=== PATIENT | female | born 1975 | race American Indian/Alaskan Native ===

== ENCOUNTER 2018-04-10 09:57 | Outpatient (CLI) | payer BC ==
--- NOTE | 2018-04-10 14:45 | Mammography Report ---
BILATERAL DIGITAL SCREENING MAMMOGRAM with CAD : 04/10/18 09:57:00 CLINICAL: Routine screening. COMPARISON:12/21/15 FINDINGS: The breasts are heterogeneously dense, which may obscure small masses.A stable right low density circumscribed mass at 5 o'clock correlates with a previously described solid mass by ultrasound. No new mass, architectural distortion or suspicious calcifications. IMPRESSION: No mammographic evidence of malignancy. BI-RADS CATEGORY: 2 -- Benign RECOMMENDATION: Routine mammographic screening in one year. COMMENT: Patient follow-up letters are generated by our [employer] application.
== END 2018-04-10 09:58 | disposition home or self-care (01) ==
LOC: SPVWC 09:57
PROVIDERS: ATTEND Obstetrics & Gynecology
DX: Z12.31 Encounter for screening mammogram for malignant neoplasm of breast (principal)
CPT/HCPCS: 77067